=== PATIENT | female | born 1980 | race Caucasian/White ===

== ENCOUNTER 2023-07-28 16:50 | Emergency (ER) | payer OTHER ==
[2023-07-28] MEDS ORDERED: Lidocaine 4% Patch TD SCH (17:45)
== END 2023-07-28 18:43 | disposition home or self-care (01) ==
LOC: CSHERS 16:50
DX: S09.90XA Unspecified injury of head, initial encounter (principal); Z98.2 Presence of cerebrospinal fluid drainage device; F17.290 Nicotine dependence, other tobacco product, uncomplicated; W08.XXXA Fall from other furniture, initial encounter
CPT/HCPCS: 70450; 75809